=== PATIENT | female | born 1950 | race Caucasian/White ===

== ENCOUNTER 2016-12-09 15:49 | Emergency (ER) | payer OTHER, BC ==
--- NOTE | 2016-12-09 16:13 | EDPHY ---
H & P Time Seen by Provider: 12/09/16 16:05 HPI/ROS: CHIEF COMPLAINT: Headache, nausea, dizziness HISTORY OF PRESENT ILLNESS: This patient is a 66 year old female complaining of headache, nausea, weakness, and dizziness onset this morning. She is currently visiting her family from [place], and arrived in [place] . This morning around 1:00am, she developed a mild frontal headache. She was able to go back to sleep, but woke up at 2:55am with the headache persisting. Initially she thought it was due to lack of sleep and travel stress. She has had headaches before, but not similar to her current one. In the morning, she ate breakfast but noted nausea and weakness. She planned to travel to [place] today, so she took the bus to the airport. Standing in the check-in line, felt she was going to collapse, and finished the check-in process in a wheelchair. She did not feel safe to take her flight due to her symptoms, and her brother recommended she return to [place] for evaluation. She has not taken any Tylenol, ibuprofen, other medications. She did have caffeine today which she does not usually. She rates her current head pain at 7/10, and endorses associated photophobia. No fever, chest pain, shortness of breath, or other associated symptoms. REVIEW OF SYSTEMS: A 10 point review of systems was performed and is negative with the exception of the elements mentioned in the history of present illness. Past Medical/Surgical History: History of transient global amnesia. Breast cancer, treatment completed 08/2006. Social History: Lives in [place]. Single. Retired. Smoking Status: Never smoked Physical Exam: General Appearance: Alert, pleasant, smiling Eyes: Pupils equal and round, no conjunctival pallor or injection ENT, Mouth: Mucous membranes moist Neck: Normal inspection Respiratory: Lungs are clear to auscultation Cardiovascular: Regular rate and rhythm Gastrointestinal: Abdomen is soft and non- tender Neurological: Alert, oriented x3, cranial nerves II through XII intact, motor 5 /5, sensory intact to light touch, normal gait Skin: Warm and dry, no rash Extremities: Nontender, no pedal edema Psychiatric: Mood and affect normal Constitutional: Initial Vital Signs Temperature (C) 36.8 C 12/09/16 15:57 Heart Rate 78 12/09/16 15:57 Respiratory Rate 18 12/09/16 15:57 Blood Pressure 180/112 H 12/09/16 15:57 O2 Sat (%) 98 12/09/16 15:57 O2 Delivery Mode Room Air Allergies/Adverse Reactions: codeine Allergy (Verified 12/09/16 15:55) dapsone Allergy (Verified 12/09/16 15:55) filgrastim Allergy (Verified 12/09/16 15:56) hydromorphone [From Dilaudid] Allergy (Verified 12/09/16 15:55) Penicillins Allergy (Verified 12/09/16 15:56) piperacillin Allergy (Verified 12/09/16 15:56) Sulfa (Sulfonamide Antibiotics) Allergy (Verified 12/09/16 15:56) Home Medications: Medication Instructions Recorded NK [No Known Home Meds] 12/09/16 Medical Decision Making ED Course/Re-evaluation: 66 year old female presents with headache, nausea, and dizziness onset this morning. The ROACH is moderate and of gradual onset. She is neurologically intact. I do not suspect SAH, meningitis or other serious etiology in this pt. I considered neuroimaging in this pt, but decided to treat her ROACH first, and if her sx don't substantially improve, will consider at that time. Plan for labs including CBC, BMP. Plan to administer 10mg IV Reglan, 25mg IV Benadryl, and 10mg IV Decadron for symptom relief. 17:04 Reassessed patient. She is feeling better, ROACH nearly resolved, but a little bit dizzy following medication administration. Plan to observe. 17:50 The patient is feeling much better. Neuro exam remains intact. Plan to discharge home in good condition. Follow up and return precautions discussed. The patient is comfortable with this plan. Differential Diagnosis: includes though not limited to SAH, meningitis, tumor, CVA, migraine ROACH, sinusitis - Data Points Laboratory Results: Laboratory Results 12/09/16 16:20 12/09/16 16:20 Medications Given: Discontinued Medications Dexamethasone (Decadron Injection) 10 mg IVP EDNOW ONE Stop: 12/09/16 16:20 Last Admin: 12/09/16 16:38 Dose: 10 mg Diphenhydramine HCl (Benadryl Injection) 25 mg IVP EDNOW ONE Stop: 12/09/16 16:20 Last Admin: 12/09/16 16:37 Dose: 25 mg Sodium Chloride (Ns) 1,000 mls @ 0 mls/hr IV ONCE ONE; Wide Open PRN Reason: Protocol Stop: 12/09/16 16:20 Last Admin: 12/09/16 16:35 Dose: 1,000 mls Metoclopramide HCl (Reglan Injection) 10 mg IVP EDNOW ONE Stop: 12/09/16 16:20 Last Admin: 12/09/16 16:36 Dose: 10 mg Departure - Departure Disposition: Home, Routine, Self-Care Clinical Impression: Headache Qualifiers: Headache type: tension-type Headache chronicity pattern: acute headache Intractability: not intractable Qualified Code(s): G44.209 - Tension-type headache, unspecified, not intractable Condition: Good Instructions: Acute Headache (ED) Additional Instructions: 1. Follow-up with your primary care physician this week for continuing symptoms. We have referred you to a local primary care physician should you have further concerns before you leave [place]. 2.Take Tylenol and/or ibuprofen as directed below. Stay well hydrated. 3. Return to the emergency department for recurrence of severe headache, nausea , vomiting, numbness, weakness, neck pain, fever or other concerns. Adult Pain & Fever Control: We recommend Acetaminophen (Tylenol) and Ibuprofen (Motrin,Advil) for pain and fever control. When fever is high or pain severe, both drugs can be used at the same time, but at different intervals. Please note the time differences. Your dose is: Acetaminophen 650mg every 4 to 6 hours Ibuprofen 600mg every 6-8 hours with food Note: do not take Acetaminophen with Hydrocodone (Vicodin, Lortab) or Oxycodone (Percocet). These medications also contain Acetaminophen. No more than 3000mg of Acetaminophen should be taken in 24 hours (for an adult). Referrals: Miki Segovia MD [Medical Doctor] - As per Instructions Stand Alone Forms: Airline Excuse Report Scribed for: Karen Omer Report Scribed by: Mis Anand Date of Report: 12/09/16 Time of Report: 16:13 Physician Review and Approval Statement: 12/09/16 16:14 Portions of this note were transcribed by a medical dermatologist. I personally performed a history, physical exam, medical decision making, and confirmed accuracy of information the transcribed note.
[2016-12-09] MEDS ORDERED: NS 1,000 ML IV ONE (16:19)
[2016-12-09] MEDS ORDERED: METOCLOPRAMIDE 10 MG/2 ML VIAL IVP ONE (16:19)
[2016-12-09] MEDS ORDERED: DEXAMETHASONE 10 MG/ML VIAL IVP ONE (16:19)
[2016-12-09 16:31] LABS: % IMMATURE GRANULYOCYTES 0.2 % (0.0-1.1); ABSOLUTE IMMATURE GRANULOCYTES 0.02 10^3/uL (0.00-0.10); ADD DIFF? NO; ADD MORPH? NO; ADD SCAN? NO; ATYPICAL LYMPHOCYTE FLAG 10 (0-99); FRAGMENT RBC FLAG 0 (0-99); HEMATOCRIT 45.3 % (38.0-47.0); HEMOGLOBIN 15.2 g/dL (12.6-16.3); LEFT SHIFT FLG 0 (0-99); LIPEMIA HEMOLYSIS FLAG 80 (0-99); MEAN CELL HEMOGLOBIN 30.9 pg (27.9-34.1); MEAN CELL HEMOGLOBIN CONCENTR. 33.6 g/dL (32.4-36.7); MEAN CELL VOLUME 92.1 fL (81.5-99.8); MEAN PLATELET VOLUME 9.9 fL (8.7-11.7); PLATELET CLUMPS FLAG 10 (0-99); PLATELET COUNT 303 10^3/uL (150-400); RED BLOOD CELL COUNT 4.92 10^6/uL (4.18-5.33); RED CELL DISTRIBUTION WIDTH 12.8 % (11.5-15.2)
[2016-12-09 16:52] VITALS: RESP 16
[2016-12-09 17:13] LABS: ANION GAP 13 mEq/L (8-16); CALCIUM 9.5 mg/dL (8.5-10.4); CARBON DIOXIDE 22 mEq/l (22-31); CHLORIDE 104 mEq/L (97-110); CREATININE 0.7 mg/dL (0.6-1.0); GLOMERULAR FILTRATION RATE > 60; GLUCOSE 101 mg/dL (70-100); POTASSIUM 4.1 mEq/L (3.5-5.2); SODIUM 139 mEq/L (134-144)
[2016-12-09 17:50] VITALS: BP 151/76; PULSE 60; TEMP 97.9; O2SAT 99
== END 2016-12-09 18:28 | disposition home or self-care (01) ==
DX: G44.209 Tension-type headache, unspecified, not intractable (principal); E86.9 Volume depletion, unspecified; Z85.3 Personal history of malignant neoplasm of breast
CPT/HCPCS: 96361; 96374; 96375; 99284; J1100; J1200; J2765